=== PATIENT | male | born 1990 | race Caucasian/White ===

== ENCOUNTER 2016-04-22 18:36 | Emergency (ER) | payer OTHER ==
[~2016-04-22] VITALS: Ht 188 cm; Wt 81.6 kg
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
[2016-04-22] MEDS ORDERED: ESCITALOPRAM OX10 MG PO (20:16)
[2016-04-22] MEDS ORDERED: IBUPROFEN800 M1 PO (20:27)
[2016-04-22] MEDS ORDERED: CYCLOBENZAPRINE10 M1 PO (20:27)
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
[2016-04-22 21:27] VITALS: BP 120/74
== END 2016-04-22 21:28 ==
LOC: ERH 18:36
DX: S20.219A Contusion of unspecified front wall of thorax, initial encounter (principal); M54.5 Low back pain; V49.40XA Driver injured in collision with unspecified motor vehicles in traffic accident, initial encounter
CPT/HCPCS: 71111; 72100